=== PATIENT | female | born 1955 | race Caucasian/White ===

== ENCOUNTER 2018-01-13 09:21 | Emergency (ER) | payer SELFPAY ==
[~2018-01-13 09:21] MED LIST: Sodium Chloride Irrig Solution 250 ML BOT ONE
[2018-01-13] MEDS ORDERED: Lidocaine 2% w/Epinephrine 1:200K 20 ML VIAL ONE (09:58)
[2018-01-13] MEDS ORDERED: Lactated Ringer's 0 ML ONE (09:58)
[2018-01-13] MEDS ORDERED: ALPRAZolam 0.25 MG TAB ONE (09:58)
[2018-01-13] MEDS ORDERED: Morphine 10 MG/ML VIAL ONE (09:58)
[2018-01-13 10:10] LABS: #Basophils 0.1 thou/uL (0.0-0.2); #Eosinphils 0.2 thou/uL (0.0-0.7); #Monocytes 0.6 thou/uL (0.11-0.59); #Neutrophils 5.3 thou/uL (1.40-6.50); %Basophils 0.9 % (0.0-1.0); %Lymphocytes 32.8 % (21.0-51.0); %Monocytes 6.7 % (0.0-10.0); %Neutrophils 57.6 % (42.0-75.0); Hemoglobin 12.3 g/dL (12.0-16.0); Mean Corpuscular HGB CONC 32.4 g/dL (32.0-36.0); Mean Corpuscular Hemoglobin 28.2 pg (27.0-31.0); Mean Corpuscular Volume 87.1 fL (78.0-98.0); Mean Platelet Volume 7.6 fL (7.4-10.4); Platelet Count 319 thou/uL (130-400); RBC Distribution Width 11.1 % (11.5-14.5); Red Blood Cell (RBC) Count 4.36 mill/uL (4.20-5.40); White Blood Cell (WBC) Count 9.3 thou/uL (4.8-10.8)
[2018-01-13 10:25] LABS: ALT (SGPT) 17 U/L (8-55); AST (SGOT) 13 U/L (5-34); Albumin 4.2 g/dL (3.4-4.8); Alkaline Phosphatase 100 U/L (40-150); Anion Gap 15 mmol/L (10-20); BUN (Urea Nitrogen) 17 mg/dL (9.8-20.1); Bilirubin, Total 0.7 mg/dL (0.2-1.2); Calc. Creatinine Clearance 0 mL/min (70-130); Calcium 10.3 mg/dL (7.8-10.44); Carbon Dioxide 23 mmol/L (23-31); Chloride 104 mmol/L (98-107); Estimated GFR-MDRD 80; Globulin 3.6 g/dL (2.4-3.5); Glucose 114 mg/dL (80-115); Potassium 4.2 mmol/L (3.5-5.1); Protein, Total 7.8 g/dL (6.0-8.3); Sodium 138 mmol/L (136-145)
== END 2018-01-13 12:20 | disposition home or self-care (01) ==
LOC: MADERS 09:21
DX: L03.116 Cellulitis of left lower limb (principal)
CPT/HCPCS: 10060; 80053; 85025; 85652; 87070; 87205; 96365; 96366; 96375; J2270; J3370; J7050; J7120

== ENCOUNTER 2021-01-18 18:29 | Emergency (ER) | payer MEDICARE ==
[~2021-01-18 18:29] MED LIST changes: +Sodium Chloride 0.9% 1,000 ML BAG ONE; +Sodium Chloride 0.9% 100 ML BAG ONE; -Sodium Chloride Irrig Solution 250 ML BOT ONE
[2021-01-18] MEDS ORDERED: Cefepime 2 GM VIAL ONE (19:57)
[2021-01-18] MEDS ORDERED: Vancomycin HCl 750 MG VIAL ONE (19:58)
[2021-01-18 20:05] LABS: #Basophils 0.1 thou/uL (0.0-0.2); #Eosinphils 0.2 thou/uL (0.0-0.7); #Lymphocytes 2.6 thou/uL (1.20-3.40); #Monocytes 1.1 thou/uL (0.11-0.59); #Neutrophils 12.4 thou/uL (1.40-6.50); %Basophils 0.3 % (0.0-1.0); %Lymphocytes 16.1 % (21.0-51.0); %Monocytes 6.8 % (0.0-10.0); %Neutrophils 75.8 % (42.0-75.0); Hemoglobin 12.1 g/dL (12.0-16.0); Mean Corpuscular HGB CONC 31.5 g/dL (32.0-36.0); Mean Corpuscular Volume 92.2 fL (78.0-98.0); Mean Platelet Volume 8.9 fL (7.4-10.4); Platelet Count 284 thou/uL (130-400); RBC Distribution Width 11.8 % (11.5-14.5); Red Blood Cell (RBC) Count 4.16 mill/uL (4.20-5.40); White Blood Cell (WBC) Count 16.3 thou/uL (4.8-10.8)
[2021-01-18 20:18] LABS: ALT (SGPT) 26 U/L (8-55); AST (SGOT) 24 U/L (5-34); Albumin 3.9 g/dL (3.4-4.8); Alkaline Phosphatase 162 U/L (40-110); Anion Gap 18 mmol/L (10-20); BUN (Urea Nitrogen) 19 mg/dL (9.8-20.1); Bilirubin, Total 0.6 mg/dL (0.2-1.2); Calc. Creatinine Clearance 0 mL/min (70-130); Calcium 10.4 mg/dL (7.8-10.44); Carbon Dioxide 17 mmol/L (23-31); Chloride 104 mmol/L (98-107); Globulin 4.3 g/dL (2.4-3.5); Glucose 372 mg/dL (80-115); Potassium 4.1 mmol/L (3.5-5.1); Protein, Total 8.2 g/dL (5.8-8.1); Sodium 135 mmol/L (136-145)
[2021-01-18 23:45] LABS: SARS-CoV-2 NAA Rapid Test Not Detected (NotDetected)
== END 2021-01-18 23:11 | disposition short-term general hospital (02) ==
LOC: MADERS 18:29
DX: L03.116 Cellulitis of left lower limb (principal); L23.3 Allergic contact dermatitis due to drugs in contact with skin; T36.95XA Adverse effect of unspecified systemic antibiotic, initial encounter
CPT/HCPCS: 73590; 80053; 83605; 85025; 87040; 96365; 96367; 96376; 99284; U0002; J0692; J3370; J3490; J7050

== ENCOUNTER 2021-12-21 09:49 | Outpatient (CLI) | payer MEDICARE ==
[2021-12-21 13:34] LABS: ALT (SGPT) 19 U/L (8-55); AST (SGOT) 14 U/L (5-34); Albumin 4.4 g/dL (3.4-4.8); Alkaline Phosphatase 109 U/L (40-110); Anion Gap 14 mmol/L (10-20); BUN (Urea Nitrogen) 17 mg/dL (9.8-20.1); Bilirubin, Total 0.9 mg/dL (0.2-1.2); Calc. Creatinine Clearance 0 mL/min (70-130); Calcium 9.8 mg/dL (7.8-10.44); Carbon Dioxide 23 mmol/L (23-31); Cardiac Risk 3.4 (Less than 4.5); Chloride 109 mmol/L (98-107); Cholesterol 155 mg/dl (< 200 Desired); Estimated GFR 88; Globulin 3.2 g/dL (2.4-3.5); Glucose 161 mg/dL (80-115); HDL Cholesterol 46 mg/dL (>60 Neg Risk); LDL Cholesterol, Calculated 73 mg/dL; Potassium 4.9 mmol/L (3.5-5.1); Protein, Total 7.6 g/dL (5.8-8.1); Sodium 141 mmol/L (136-145); Triglycerides 181 mg/dL (Less than 150)
[2021-12-21 13:50] LABS: Thyroid Stimulating Hormone 5.7582 uIU/mL (0.35-4.94)
[2021-12-22 12:19] LABS: Hemoglobin A1c 6.3 % (4.0-6.0)
[2021-12-22 12:32] LABS: Creatinine, Urine 60.29 mg/dL (47-110); Microalbumin Urine Less than 1.0 mg/dL (0.5-50.0)
[2021-12-22 12:39] LABS: Free T4 (Free Thyroxine) 0.86 ng/dL (0.70-1.48)
== END 2021-12-21 09:50 | disposition home or self-care (01) ==
LOC: MADLAB 09:49
PROVIDERS: ATTEND Family Medicine
DX: E78.2 Mixed hyperlipidemia (principal); E08.628 Diabetes mellitus due to underlying condition with other skin complications
CPT/HCPCS: 36415; 80053; 80061; 82043; 83036; 84439; 84443

== ENCOUNTER 2023-01-19 11:05 | Emergency (ER) | payer MEDICARE ==
[2023-01-19] MEDS ORDERED: Lidocaine 1% w/Epinephrine 1:100K 50 ML VIAL ONE (11:40)
[2023-01-19] MEDS ORDERED: Vancomycin 1 GM VIAL ONE (11:44)
[2023-01-19] MEDS ORDERED: Sodium Chloride 0.9% 250 ML 250 ML ONE (11:45)
== END 2023-01-19 13:06 | disposition home or self-care (01) ==
LOC: MADERS 11:05
DX: L02.416 Cutaneous abscess of left lower limb (principal); E11.9 Type 2 diabetes mellitus without complications; E78.5 Hyperlipidemia, unspecified; Z79.84 Long term (current) use of oral hypoglycemic drugs
CPT/HCPCS: 10060; 87070; 87077; 87186; 87205; 96365; J3370; J7050

== ENCOUNTER 2023-11-10 14:10 | Outpatient (CLI) | payer MEDICARE | END 2023-11-10 14:11 | disposition home or self-care (01) | LOC: MADRAD 14:10 | PROVIDERS: ATTEND Family Medicine | DX: S82.001A Unspecified fracture of right patella, initial encounter for closed fracture (principal); M17.11 Unilateral primary osteoarthritis, right knee ==